=== PATIENT | female | born 1995 | race Caucasian/White ===

== ENCOUNTER 2020-02-11 11:24 | Emergency (ER) | payer OTHER, BC, SELFPAY ==
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
[2020-02-11 11:54] VITALS: BP 147/98; PULSE 63; RESP 12; TEMP 37.3; O2SAT 100
== END 2020-02-11 12:54 | disposition home or self-care (01) ==
PROVIDERS: Emergency Provider Nurse Practitioner Family; PCP Internal Medicine
DX: S43.101A Unspecified dislocation of right acromioclavicular joint, initial encounter (principal); V43.92XA Unspecified car occupant injured in collision with other type car in traffic accident, initial encounter; J45.909 Unspecified asthma, uncomplicated
CPT/HCPCS: 73030; 99213; G0463

== ENCOUNTER 2020-04-28 07:25 | Emergency (ER) | payer BC, SELFPAY ==
--- NOTE | ~2020-04-28 | US_ITS ---
EXAMINATION: US OB <=14 wk fetus w TV DATE: 04/28/2020 09:51 INDICATION: Vaginal bleeding and cramping during first trimester of TECHNIQUE: Real-time pelvic ultrasound utilizing both a transvaginal and transabdominal probe was pe rformed. The interpreting radiologist was not present for the study. COMPARISON: None. FINDINGS: The uterus measures 8.1 x 7.2 x 5.7 cm. There is an intrauterine gestational sac. A yolk sac is iden tified but no pole yet apparent. The mean sac diameter measures 10 mm which correlates with an estimated gestational age of 5 weeks and 4 days. 1.5 x 0.7 x 0.6 cm hypoechoic likely subchorionic he matoma along the caudal aspect of the gestational sac. The right ovary measures 2.5 x 1.8 x 1.7 cm. The left ovary measures 3.1 x 1.6 x 1.9 cm. 11 mm thick- walled centrally cystic likely corpus luteum cyst in the left ovary. Vascular flow identified in both ovaries on color Doppler. There is a small amount of free fluid in the pelvis. IMPRESSION: 1. Single intrauterine gestational sac with single yolk sac but no pole yet apparent likely due to early stage of . 2. Gestational age by ultrasound based upon mean sac diameter of 5 weeks 4 day(s) +/- or day(s) with ultrasound estimated date of delivery ([facility]) of 12/25/2020. 3. Small subchorionic hematoma. 4. Small amount of free fluid in the cul-de-sac. Reviewed, dictated and finalized at location A. IMPRESSION: 1. Single intrauterine gestational sac with single yolk sac but no pole y et apparent likely due to early stage of . 2. Gestational age by ultrasound based upon mean sac diameter of 5 weeks 4 day (s) +/- or day(s) with ultrasound estimated date of delivery ([facility]) of 1. 3. Small subchorionic hematoma. 4. Small amount of free fluid in the cul-de-sac.
[2020-04-28 07:28] VITALS: BP 133/69; PULSE 87; RESP 20; TEMP 36.7; O2SAT 100
[2020-04-28 08:00] LABS: Basophils Percent Auto 0.6 % (0.2-1.2); Eosinophils Absolute Auto 0.2 K/mm3 (0-0.3); Eosinophils Percent Auto 2.4 % (0-4.4); Hemoglobin 13.6 g/dL (12.0-15.0); Immature Granulocyte Absolute 0.02 K/mm3 (0.00-0.031); Immature Granulocyte Percent A 0.3 % (0-0.5); Lymphocytes Absolute Auto 1.66 K/mm3 (0.9-3.2); Lymphocytes Percent Auto 24.5 % (18.3-44.2); Mean Corpuscular HGB Conc 33.2 g/dl (32-36); Mean Corpuscular Hemoglobin 29.7 pg (26-34); Mean Corpuscular Volume 89.5 fl (80-100); Mean Platelet Volume 10.2 fl (7.4-10.4); Monocytes Absolute Auto 0.3 K/mm3 (0.1-0.6); Neutrophils Absolute Auto 4.6 K/mm3 (1.3-6.7); Neutrophils Percent Auto 68.2 % (45.5-73.1); Platelet Count Result 221 k/mm3 (150-375); Red Blood Count 4.58 M/mm3 (4.2-5.4); Red Cell Distribution Width 13.2 % (11.5-14.5); White Blood Count 6.8 K/mm3 (4.5-10.0)
[2020-04-28 08:11] LABS: Add Urine Microscopic? YES; Appearance Urine Cloudy (Clear); Bilirubin Urine Negative (Negative); Blood Urine 3+ (Negative); Color Urine Amber (Yellow); Glucose Urine UA Negative (Negative); Ketones Urine Negative (Negative); Leukocyte Esterase Ur Negative LEU/UL (Negative); Mucus Urine Few /lpf; Nitrate Urine Negative (Negative); Protein Urine 2+ mg/dL (Negative); RBC Urine 21-50 /hpf (0-2); Specific Grav Ur 1.023 (1.001-1.035); Squamous Epithelial Cell Urine Many /hpf (Few); WBC Urine 0-3 /hpf
--- NOTE | 2020-04-28 08:14 | ED.GENADULT ---
HPI - General Adult General Chief complaint: Vaginal Bleeding Stated complaint: 6 WEEKS PREG, BLEEDING Time Seen by Provider: 04/28/20 07:39 Source: patient History of Present Illness HPI narrative: Patient is 25 y/o female complaining of severe vaginal bleeding starting today. She did not notice any tissue or clots. There is no alleviating or exacerbating factor. She also has some lower abdominal cramp. She states that she is approximately 6 week . Her LMP was 03/20/20. She has seen Dr. Thomason once for her . Related Data Allergies Allergy/AdvReac Type Severity Reaction Status Date / Time No Known Allergies Allergy Mild Verified 04/28/20 07:30 Review of Systems Constitutional: Constitutional: Denies chills, Denies fever(s), Denies headache(s) and Denies weakness Eyes: Eyes: Denies blurry vision ENT: Denies headache(s) and Denies neck pain Cardiovascular: Cardiovascular: Denies chest pain and Denies dyspnea Respiratory: Respiratory: Denies cough and Denies dyspnea Gastrointestinal: Gastrointestinal: Denies abdominal pain, Denies diarrhea, Denies nausea and Denies vomiting Genitourinary: Genitourinary: Reports abnormal vaginal bleeding, Denies hematuria, Denies dysuria and Reports pelvic pain Musculoskeletal: Musculoskeletal: Denies back pain and Denies neck pain Neurologic: Denies headache(s) and Denies weakness PMFSH Past Medical History Medical History (Updated 04/28/20 @ 11:01 by Aria Garcia MD) Asthma Surgical History Surgical History H/O oral surgery Family History Family History Grandparent Family history of coronary artery disease Mother Thyroid disease Father No problems noted. Social History Social History Smoking status: Never smoker Alcohol intake: never Substance use: never Gender identity (if verbalized by the patient): Female Exam Const: General: no acute distress and well developed Orientation/consciousness: oriented to person, oriented to place, oriented to time and patient oriented x3 HENMT: Head: normocephalic Ears: external ears normal General nose exam: Normal external nose present Eyes: General: appearance normal, both eyes and all related structures Conjunctivae: conjunctivae normal Neck: Neck: normal visual inspection and full ROM Chest: Chest palpation & inspection: normal inspection of the chest and no tenderness Resp: Effort & Inspection: normal respiratory effort Auscultation: clear to auscultation bilaterally Cardio: Rate: regular rate Rhythm: regular rhythm GI: GI Palp: No abdominal tenderness and Yes Soft to palpation Skin: General skin exam: normal color and turgor normal Neuro: General: oriented to person, oriented to place, oriented to time and patient oriented x3 Cognition (Neuro): normal cognition Extrem: General: normal to inspection, full ROM and no pedal edema Psych: Appearance: grossly normal Mental Status: mental status grossly normal Affect: normal affect Course Consultations Consultation #1: Discussed with Dr. Marshall ([employer]), who agrees with the plan for discharge and follow up. Date: 04/28/20 Time: 10:42 Vital Signs Vital signs: Vital Signs Temperature 36.7 C 04/28/20 07:28 Pulse Rate 87 04/28/20 07:28 Respiratory Rate 20 04/28/20 07:28 Blood Pressure 133/69 04/28/20 07:28 Pulse Oximetry 100 04/28/20 07:28 Temperature 36.7 C 04/28/20 07:28 Pulse Rate 86 04/28/20 11:11 Respiratory Rate 20 04/28/20 07:28 Blood Pressure 111/63 04/28/20 11:11 Pulse Oximetry 98 04/28/20 11:11 Medical Decision Making Vital Signs Vital Signs: Vital Signs Temperature 36.7 C 04/28/20 07:28 Pulse Rate 87 04/28/20 07:28 Respiratory Rate 20 04/28/20 07:28 Blood Pressure 133/69 04/28/20 07:28 Pulse Oximetry
[2020-04-28 08:16] LABS: Alanine Aminotransferase 34 U/L (4-35); Albumin Level 4.4 g/dL (3.5-5.1); Alkaline Phosphatase 53 U/L (38-126); Anion Gap 8 mmol/L (8-16); Aspartate Amino Transferase 29 U/L (14-36); Bilirubin,Total 0.5 mg/dL (0.2-1.3); Blood Urea Nitrogen 10 mg/dL (7-17); Calcium 9.2 mg/dL (8.4-10.2); Carbon Dioxide 27 mmol/L (22-30); Chloride 103 mmol/L (98-107); Estimated CRCL calculation 135 ml/min; Estimated Glomerular Filt Rate > 60; Glucose 128 mg/dL (65-105); Potassium 3.7 mmol/L (3.4-5.0); Sodium 138 mmol/L (137-145)
[2020-04-28 11:11] VITALS: BP 111/63; PULSE 86; O2SAT 98
== END 2020-04-28 11:18 | disposition home or self-care (01) ==
PROVIDERS: Emergency Provider Emergency Medicine; PCP Internal Medicine
DX: O20.0 Threatened abortion (principal); Z3A.01 Less than 8 weeks gestation of pregnancy
CPT/HCPCS: 36415; 76801; 76817; 80053; 81001; 84702; 85025; 86900; 86901; 99284

== ENCOUNTER 2020-05-02 15:05 | Emergency (ER) | payer BC, SELFPAY ==
[2020-05-02 15:10] VITALS: BP 140/81; PULSE 90; RESP 16; TEMP 36; O2SAT 100
--- NOTE | 2020-05-02 16:05 | ED.PREGNANCY ---
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 Patient is about 6 weeks , had an ultrasound done a few days ago here in the emergency department. She also notes abdominal cramping that started today. Patient denies any recent sexual activity. No urinary complaints. Patient went to her [employer]'s office on Wednesday, and only had blood drawn. No chest pain or shortness of breath. Related Data Allergies Allergy/AdvReac Type Severity Reaction Status Date / Time No Known Allergies Allergy Mild Verified 04/28/20 07:30 Review of Systems Review of Systems: Narrative: CONSTITUTIONAL: Denies fever, chills, or sweats. EYES: Denies visual changes, redness, or discharge. ENT: Denies rhinorrhea, congestion, sore throat, or otalgia. CARDIOVASCULAR: Denies chest pain, palpitations, or edema. RESPIRATORY: Denies cough or dyspnea. GASTROINTESTINAL: Denies abdominal pain, nausea, vomiting, or diarrhea. GENITOURINARY: Vaginal bleeding. SKIN: Denies rash or itching. MUSCULOSKELETAL: Denies back pain, joint pain, or myalgia. NEUROLOGIC: Denies headache, numbness, dizziness, or weakness. PSYCHIATRIC: Denies anxiety or depression. All systems reviewed & are unremarkable except as noted in HPI and below (ROS) PMFSH Past Medical History Medical History (Updated 05/02/20 @ 19:09 by Damaso Manzano DO) Asthma Surgical History Surgical History H/O oral surgery Family History Family History Grandparent Family history of coronary artery disease Mother Thyroid disease Father No problems noted. Social History Social History Smoking status: Never smoker Alcohol intake: never Substance use: never Gender identity (if verbalized by the patient): Female Exam Narrative: Exam Narrative: GENERAL: Well-appearing, well-nourished, and in no acute distress. HEAD: Normocephalic, atraumatic. EYES: PERRLA and EOMI. ENT: Nares clear, no rhinorrhea or epistaxis. Mucous membranes moist. NECK: Supple. CHEST: Clear to auscultation. No respiratory distress. HEART: Regular rate and rhythm. No murmur heard. Normal peripheral pulses. : Small amount of blood clots in vaginal vault, no active bleeding. ABDOMEN: Soft, nontender, nondistended, normal active bowel sounds. EXTREMITIES: Normal range of motion. No edema. SKIN: Warm, dry, no rash. NEURO: No focal deficits. Alert and oriented x3. PSYCH: Normal mood and affect. Course Course Emergency Course: 19:00 -is increase in the requirement. However since bleeding started today, this could possibly be the early start of a miscarriage. Counseled patient to follow-up with her [employer] physician as soon as possible. Patient will need a repeat beta quant in the future, and repeat examination. She may need ultrasound the next few days also. Return to emergency department at any time if she notes increased vaginal bleeding, abdominal cramping/pain, or other concerns. Vital Signs Vital signs: Vital Signs Temperature 36.0 C L 05/02/20 15:10 Pulse Rate 90 05/02/20 15:10 Respiratory Rate 16 05/02/20 15:10 Blood Pressure 140/81 05/02/20 15:10 Pulse Oximetry 100 05/02/20 15:10 Temperature 36.0 C L 05/02/20 15:10 Pulse Rate 82 05/02/20 18:26 Respiratory Rate 18 05/02/20 18:26 Blood Pressure 112/78 05/02/20 18:26 Pulse Oximetry 99 05/02/20 18:26 MDM - OB/Uterine Contractions Medical Records Attestation: I reviewed the patient's medical records. Lab Data Attestation: I reviewed the patient's lab results. Result diagrams: 05/02/20 16:31 05/02/20 16:31
[2020-05-02 16:43] LABS: Basophils Absolute Auto 0.1 K/mm3 (0.0-0.1); Basophils Percent Auto 0.7 % (0.2-1.2); Eosinophils Absolute Auto 0.2 K/mm3 (0-0.3); Eosinophils Percent Auto 1.9 % (0-4.4); Hematocrit 39.5 % (37.0-47.0); Hemoglobin 13.2 g/dL (12.0-15.0); Immature Granulocyte Absolute 0.02 K/mm3 (0.00-0.031); Immature Granulocyte Percent A 0.2 % (0-0.5); Lymphocytes Absolute Auto 2.07 K/mm3 (0.9-3.2); Lymphocytes Percent Auto 22.6 % (18.3-44.2); Mean Corpuscular HGB Conc 33.4 g/dl (32-36); Mean Corpuscular Hemoglobin 29.2 pg (26-34); Mean Corpuscular Volume 87.4 fl (80-100); Mean Platelet Volume 10.1 fl (7.4-10.4); Monocytes Absolute Auto 0.4 K/mm3 (0.1-0.6); Monocytes Percent Auto 4.7 % (2.6-8.5); Neutrophils Absolute Auto 6.4 K/mm3 (1.3-6.7); Neutrophils Percent Auto 69.9 % (45.5-73.1); Platelet Count Result 222 k/mm3 (150-375); Red Blood Count 4.52 M/mm3 (4.2-5.4); Red Cell Distribution Width 12.7 % (11.5-14.5); White Blood Count 9.2 K/mm3 (4.5-10.0)
[2020-05-02 16:59] LABS: Alanine Aminotransferase 30 U/L (4-35); Albumin Level 4.3 g/dL (3.5-5.1); Alkaline Phosphatase 53 U/L (38-126); Anion Gap 8 mmol/L (8-16); Aspartate Amino Transferase 28 U/L (14-36); Bilirubin,Total 0.3 mg/dL (0.2-1.3); Blood Urea Nitrogen 9 mg/dL (7-17); Calcium 9.1 mg/dL (8.4-10.2); Carbon Dioxide 26 mmol/L (22-30); Chloride 103 mmol/L (98-107); Estimated CRCL calculation 135 ml/min; Estimated Glomerular Filt Rate > 60; Glucose 108 mg/dL (65-105); Potassium 3.4 mmol/L (3.4-5.0); Sodium 137 mmol/L (137-145)
[2020-05-02 17:50] LABS: Add Urine Microscopic? YES; Appearance Urine Clear (Clear); Bacteria Urine Trace /hpf; Bilirubin Urine Negative (Negative); Blood Urine 3+ (Negative); Color Urine Yellow (Yellow); Glucose Urine UA Negative (Negative); Ketones Urine Negative (Negative); Leukocyte Esterase Ur Negative LEU/UL (Negative); Mucus Urine Rare /lpf; Nitrate Urine Negative (Negative); Protein Urine Negative (Negative); RBC Urine 0-2 /hpf (0-2); Specific Grav Ur 1.013 (1.001-1.035); Squamous Epithelial Cell Urine Few /hpf (Few); Urobilinogen Urine Negative mg/dL (<2.0); WBC Urine 0-3 /hpf
[2020-05-02 18:26] VITALS: BP 112/78; PULSE 82; RESP 18; O2SAT 99
== END 2020-05-02 19:31 | disposition home or self-care (01) ==
PROVIDERS: Emergency Provider Emergency Medicine; PCP Internal Medicine
DX: O20.0 Threatened abortion (principal); Z3A.01 Less than 8 weeks gestation of pregnancy
CPT/HCPCS: 36415; 80053; 81001; 84702; 85025; 99284

== ENCOUNTER 2020-12-10 05:47 | Inpatient (IN) | payer BC, SELFPAY ==
[2020-12-10] VITALS (88 sets, daily range): BP systolic 102–156; BP diastolic 50–93; PULSE 67–115; RESP 18–20; TEMP 36.4–36.8; O2SAT 78–100; BMI 37.3
--- NOTE | 2020-12-10 06:36 | LDADM ---
This patient, Jeannette Wyatt, was admitted to Labor/Delivery/Recovery 107 on 12/10/20 at 05:47. Plans for labor, pain management and were discussed with patient. Patient/family oriented to hospital policies and general routines including ID bracelet, bed and alarms, visiting hours, pain management, procedures, bathroom and other care routines, personal items, smoking policy, room service/diet and guest tray routines, infant security routines, call light and visiting hours. Patient/Family are encouraged to report perceived risks to care and to ask questions if they do not understand what they are told or what they should do. See OBIX for further documentation.
[2020-12-10 06:44] LABS: Basophils Percent Auto 0.4 % (0.2-1.2); Eosinophils Absolute Auto 0.1 K/mm3 (0-0.3); Eosinophils Percent Auto 1.2 % (0-4.4); Hematocrit 34.9 % (37.0-47.0); Hemoglobin 11.2 g/dL (12.0-15.0); Immature Granulocyte Percent A 0.9 % (0-0.5); Lymphocytes Percent Auto 16.9 % (18.3-44.2); Mean Corpuscular HGB Conc 32.1 g/dl (32-36); Mean Corpuscular Hemoglobin 27.3 pg (26-34); Mean Corpuscular Volume 84.9 fl (80-100); Mean Platelet Volume 12.3 fl (7.4-10.4); Monocytes Absolute Auto 0.6 K/mm3 (0.1-0.6); Monocytes Percent Auto 5.6 % (2.6-8.5); Platelet Count Result 134 k/mm3 (150-375); Red Blood Count 4.11 M/mm3 (4.2-5.4); Red Cell Distribution Width 14.6 % (11.5-14.5); White Blood Count 10.6 K/mm3 (4.5-10.0)
[2020-12-10 06:59] LABS: Alanine Aminotransferase 12 U/L (4-35); Albumin Level 3.2 g/dL (3.5-5.1); Alkaline Phosphatase 123 U/L (38-126); Anion Gap 5 mmol/L (8-16); Aspartate Amino Transferase 21 U/L (14-36); Bilirubin,Total 0.3 mg/dL (0.2-1.3); Blood Urea Nitrogen 10 mg/dL (7-17); Calcium 8.8 mg/dL (8.4-10.2); Carbon Dioxide 24 mmol/L (22-30); Chloride 107 mmol/L (98-107); Estimated CRCL calculation 151 ml/min; Estimated Glomerular Filt Rate > 60; Glucose 100 mg/dL (65-110); Potassium 3.9 mmol/L (3.4-5.0); Sodium 136 mmol/L (137-145)
[2020-12-10] MEDS: LACTATED RINGERS 1,000 ML 125 ML IV CONT ×2 (07:23→09:19)
[2020-12-10] MEDS: OXYTOCIN 30 UNITS/NS 500 ML 30 UNITS/500 ML BAG IV CONT (07:23)
--- NOTE | 2020-12-10 07:44 | PM.IMHP ---
H&P: HPI History of Present Illness Date/Time: 12/10/20 07:44 5-year-old 3 para 2 whose last menstrual period was 03/20/2020, EDC is 12/25/2020, presents at 37 and 6 7th weeks gestation for induction of labor. She has elevated blood pressures. She also complains of some headaches. PIH labs this morning are within normal limits. Early ultrasound confirmed states. She is negative for group B strep Chief Complaint: Elevated blood pressures at term Review of Systems Review of Systems: All systems reviewed & are unremarkable except as noted in HPI and below PMFSH Past Medical History Medical History Asthma Surgical History Surgical History H/O oral surgery Family History Family History Grandparent Family history of coronary artery disease Mother Thyroid disease Father No problems noted. Social History Social History Smoking status: Never smoker Alcohol intake: never Substance use: never Gender identity (if verbalized by the patient): Female Spiritual care concerns: No Meds Home Medications and Allergies Home Medications Medication Instructions Recorded Confirmed Type albuterol sulfate 90 mcg/actuation 1 puff INHALATION Q4-6H PRN #8.5 gm 09/22/19 12/10/20 Rx aerosol inhaler [id number] fum-folic [id number] 1 pkg PO DAILY 11/22/20 12/10/20 History [One A Day Women's DHA] sertraline [Zoloft] 50 mg PO BID 11/22/20 12/10/20 History Allergies Allergy/AdvReac Type Severity Reaction Status Date / Time No Known Allergies Allergy Mild Verified 12/10/20 06:11 Vital Signs Vital Signs - 24 hr 12/10/20 06:26 12/10/20 06:31 12/10/20 06:46 Pulse Rate 90 88 82 Blood Pressure 138/91 H 132/89 136/80 12/10/20 07:16 12/10/20 07:31 Pulse Rate 98 94 Blood Pressure 145/93 H 138/88 Exam Const: General: no acute distress Eyes: General: appearance normal, both eyes and all related structures Neck: Neck: supple and no JVD Thyroid: thyroid normal Resp: Effort & Inspection: normal respiratory effort Auscultation: clear to auscultation bilaterally Cardio: Rate: regular rate Rhythm: regular rhythm GI: Inspection: non-distended GI Palp: Yes Soft to palpation, No Tenderness to palpation present (GI) and No Guarding due to palpation present (GI) Auscultation: normal bowel sounds : External Female Exam: normal external appearance Speculum Exam - Vagina: normal appearance of the vagina Speculum Exam - Cervix: Cervical os closed ( cervix 3/ 50/-1. AROM clear. FHTs reassuring) Skin: General skin exam: no rashes or lesions noted Extrem: General: normal to inspection and no edema Psych: Mental Status: mental status grossly normal Affect: normal affect H&P: Results Labs Labs: Short CBC 12/10/20 Range/Units 06:25 WBC 10.6 H (4.5-10.0) K/mm3 Hgb 11.2 L (12.0-15.0) g/dL Hct 34.9 L (37.0-47.0) % Plt Count 134 L (150-375) k/mm3 BMP 12/10/20 06:25 Sodium 136 L Potassium 3.9 Chloride 107 Carbon Dioxide 24 BUN 10 Creatinine 0.60 L Glucose 100 Calcium 8.8 Liver Function 12/10/20 Range/Units 06:25 Total Bilirubin 0.3 (0.2-1.3) mg/dL AST 21 (14-36) U/L ALT 12 (4-35) U/L Alkaline Phosphatase 123 (38-126) U/L Albumin 3.2 L (3.5-5.1) g/dL Assessment and Plan Additional Plan impression: Term with elevated blood pressures Plan: Medical induction of labor. Spontaneous vaginal delivery is expected. She has an epidural candidate.
--- NOTE | 2020-12-10 08:52 | WPDANESEPPF ---
Anes - Initial Pre Proc Eval Date/Time: 12/10/20 08:52 Surgeon: Parth Thomason MD Pre Op Diagnosis: IOL Patient Data Age: 25 Gender: F Height: 1.7 m Weight: 108 kg Last Vital Signs Temp 36.8 C 12/10/20 07:44 Pulse 82 12/10/20 08:31 BP 139/88 12/10/20 08:31 Pulse Ox 100 12/10/20 08:51 Allergies Allergy/AdvReac Type Severity Reaction Status Date / Time No Known Allergies Allergy Mild Verified 12/10/20 06:11 Home Medications Medication Instructions Recorded Confirmed Type albuterol sulfate 90 mcg/actuation 1 puff INHALATION Q4-6H PRN #8.5 gm 09/22/19 12/10/20 Rx aerosol inhaler [id number] fum-folic [id number] 1 pkg PO DAILY 11/22/20 12/10/20 History [One A Day Women's DHA] sertraline [Zoloft] 50 mg PO BID 11/22/20 12/10/20 History Laboratory Tests 12/10/20 12/10/20 12/10/20 06:25 06:25 06:25 WBC 10.6 K/mm3 H K/mm3 (4.5-10.0) RBC 4.11 M/mm3 L M/mm3 (4.2-5.4) Hgb 11.2 g/dL L g/dL (12.0-15.0) Hct 34.9 % L % (37.0-47.0) MCV 84.9 fl fl (80-100) MCH 27.3 pg pg (26-34) MCHC 32.1 g/dl g/dl (32-36) RDW 14.6 % H % (11.5-14.5) Plt Count 134 k/mm3 L k/mm3 (150-375) MPV 12.3 fl H fl (7.4-10.4) Immature Gran % (Auto) 0.9 % H % (0-0.5) Neut % (Auto) 75.0 % H % (45.5-73.1) Lymph % (Auto) 16.9 % L % (18.3-44.2) Lipscomb % (Auto) 5.6 % % (2.6-8.5) Eos % (Auto) 1.2 % % (0-4.4) Baso % (Auto) 0.4 % % (0.2-1.2) Lymph # (Auto) 1.80 K/mm3 K/mm3 (0.9-3.2) Lipscomb # (Auto) 0.6 K/mm3 K/mm3 (0.1-0.6) Eos # (Auto) 0.1 K/mm3 K/mm3 (0-0.3) Baso # (Auto) 0.0 K/mm3 K/mm3 (0.0-0.1) Abs Immat Gran (auto) 0.10 K/mm3 H K/mm3 (0.00-0.031) Absolute Neuts (auto) 8.0 K/mm3 H K/mm3 (1.3-6.7) Absolute Nucleated RBC 0.0 K/mm3 K/mm3 (0.0-0.012) Nucleated RBC % 0.0 % % (0.0-0.2) Sodium 136 mmol/L L mmol/L (137-145) Potassium 3.9 mmol/L mmol/L (3.4-5.0) Chloride 107 mmol/L mmol/L (98-107) Carbon Dioxide 24 mmol/L mmol/L (22-30) Anion Gap 5 mmol/L L mmol/L (8-16) BUN 10 mg/dL mg/dL (7-17) Creatinine 0.60 mg/dL L mg/dL (0.7-1.0) Estim Creat Clear Calc 151 ml/min ml/min Estimated GFR > 60 (59 - ) Glucose 100 mg/dL mg/dL (65-110) Calcium 8.8 mg/dL mg/dL (8.4-10.2) Total Bilirubin 0.3 mg/dL mg/dL (0.2-1.3) AST 21 U/L U/L (14-36) ALT 12 U/L U/L (4-35) Alkaline Phosphatase 123 U/L U/L (38-126) Total Protein 6.0 g/dL L g/dL (6.3-8.2) Albumin 3.2 g/dL L g/dL (3.5-5.1) RPR Pending Blood Type Antibody Screen 12/10/20 06:25 WBC RBC Hgb Hct MCV MCH MCHC RDW Plt Count MPV Immature Gran % (Auto) Neut % (Auto) Lymph % (Auto) Lipscomb % (Auto) Eos % (Auto) Baso % (Auto) Lymph # (Auto) Lipscomb # (Auto) Eos # (Auto) Baso # (Auto) Abs Immat Gran (auto) Absolute Neuts (auto) Absolute Nucleated RBC Nucleated RBC % Sodium Potassium Chloride Carbon Dioxide Anion Gap BUN Creatinine Estim Creat Clear Calc Estimated GFR Glucose Calcium Total Bilirubin AST ALT Alkaline Phosphatase Total Protein Albumin RPR Blood Type O Positive Antibody Screen Negative Patient hx anesthesia problems: none Family hx anesthesia problems: none Results Review: All pre-operative results and documents have been reviewed as part of the pre-operative evaluation. PMF
--- NOTE | 2020-12-10 11:43 | PM.OBPNLAB ---
Pain Control Date/time seen: 12/10/20 11:43 Pain control: tolerating well and epidural Pelvic Exam Dilation (cm): 4 Effacement (%): 80 Amniotic membrane status: Leaking Contractions Monitor mode: Palpation
--- NOTE | 2020-12-10 12:27 | PM.OBPRVD ---
OB - Delivery Note Procedure Delivery date: 12/10/20 Procedure: mil events: Induced HTN Intrapartal events: None Induction method: AROM Delivery augmentation: pitocin Delivery monitor: external FHT Route of delivery: Episiotomy description: None Laceration Description: None Quantitative Blood Loss (ml): 58 Anesthesia type: Epidural Disposition: floor Baby Date of : 12/10/20 Time of : 12:17 Weeks of gestation at delivery: 37 gender: Female Weight (pounds): 8 Weight (ounces): 3 presentation: vertex position: Right Occiput Anterior Placenta delivery description: Spontaneous cord vessel description: 3 Vessels and Nuchal Cord score one minute: 9 score five minutes: 9
[2020-12-10] MEDS: OXYTOCIN 30 UNITS/NS 500 ML 30 UNITS/500 ML BAG 125 UNITS IV CONT (13:03)
--- NOTE | 2020-12-10 15:15 | PC.NURSE ---
Patient transferred to post room #285 per wheelchair. Support person present. Oriented to unit, room, information board, rooming in, admission packet and security measures. Patient verbalizes understanding.
--- NOTE | 2020-12-10 15:45 | PC.NURSE ---
RN requested assist with feeding. Mother reports eagerly fed first feeding without issue. Infant is able to freely thrust tongue past gum ridge and flange both lips. Skin is intact on both nipples, no redness and bruising noted. Reviewed infant feeding cues, frequencies, duration of feedings, feeding elimination flow sheet, and signs of adequate intake. Demonstrated stimulation techniques to wake for feeding. Assisted with to breast. Reviewed positioning/alignment in cross cradle, holding breast in ?U? hold and guided asymmetrical latch on. Reviewed rational for each. Infant able to latch correctly within a few attempts. nursed eagerly with steady draws and occasional/frequent swallowing noted, some pausing noted. Reviewed signs of a correct latch, effective nursing and suck swallow ratio. Suggested mother stimulate while feeding to increase stimulation for milk supply, for increased intake and to assist with maintaining deep latch. was able to maintain latch without discomfort to mother. Nipple care reviewed of lanolin after feedings, warm compresses as needed. Instructed mother to call out for RN assistance if she is unable to latch for feeding or she has discomfort with nursing. Instructed feeding should be initiated three hours from start of last feeding or if feeding cues are noted before. Mother voiced understanding of information shared.
[2020-12-10] MEDS: DOCUSATE SODIUM 100 MG CAPSULE PO (17:26)
[2020-12-10] MEDS: IBUPROFEN 600 MG TABLET PO (17:27)
[2020-12-10] MEDS: LANOLIN (LANSINOH) 7.5 GM CREAM 1 APPLIC TOPICAL (17:27)
[2020-12-10] MEDS: SERTRALINE HCL 50 MG TABLET PO (19:46)
[2020-12-11] MEDS: IBUPROFEN 600 MG TABLET PO ×2 (01:17→09:29)
[2020-12-11 04:30] VITALS: BP 124/73; PULSE 82; RESP 18; TEMP 36.6; O2SAT 97
[2020-12-11 04:58] LABS: Hematocrit 31.1 % (37.0-47.0); Hemoglobin 10.1 g/dL (12.0-15.0)
--- NOTE | 2020-12-11 07:43 | PM.DS ---
DS: Admitting Diagnosis Discharge Date 11/10/2020 Admitting Diagnosis gestational hypertension at term DS: Summary Hospital Course Hospital Course: the patient was admitted for induction of labor at 37 and 5 7th weeks gestation. She had elevated blood pressures at term. She underwent spontaneous vaginal delivery which was unremarkable. Her hospital course was unremarkable as well. She was up, ambulating, voiding without difficulty, and generally without complaints Time Spent with Patient Time attestation: Total time spent providing and/or coordinating discharge services: Exam Const: General: no acute distress Eyes: General: appearance normal, both eyes and all related structures Neck: Neck: supple and no JVD Thyroid: thyroid normal Resp: Effort & Inspection: normal respiratory effort Auscultation: clear to auscultation bilaterally Cardio: Rate: regular rate Rhythm: regular rhythm GI: Inspection: non-distended GI Palp: Yes Soft to palpation, No Tenderness to palpation present (GI) and No Guarding due to palpation present (GI) Auscultation: normal bowel sounds : General: Yes bladder normal to palpation External Female Exam: normal external appearance Speculum Exam - Vagina: normal vaginal discharge and No vaginal bleeding Speculum Exam - Cervix: nontender Bimanual exam- vagina & uterus: bladder normal to palpation and No Cervical tenderness present OB/external & speculum: No vaginal bleeding Skin: General skin exam: no rashes or lesions noted Extrem: General: normal to inspection and no edema Psych: Mental Status: mental status grossly normal Affect: normal affect DS: Data Data Completed and Pending Labs on day of discharge: Labs from last 24 hours 12/11/20 12/10/20 04:43 06:25 Hgb 10.1 L Hct 31.1 L Blood Type O Positive Antibody Screen Negative Discharge Plan Discharge Attending physician on discharge: Parth Thomason Discharging Clinician: Parth Thomason Patient Disposition: Home, Self-Care Activity: may shower, no straining and pelvic rest Diet: heart healthy Patient Instructions: Antibiotic Form Stand Alone Forms: General Discharge Information Follow-up/Referrals: Parth Thomason MD [Physician] - Discharge Medications: Continued albuterol sulfate [Ventolin HFA] 90 mcg/actuation HFA aerosol inhaler 1 puff INHALATION Q4-6H PRN (Reason: shortness of breath or wheezing) Qty: 8.5 RF: 3 sertraline [Zoloft] 50 mg Tablet 50 mg PO BID RF: 0 One A Day Women's DHA 28 mg iron- 800 mcg Combo Pack 1 pkg PO DAILY RF: 0 Date of admission: 12/10/20 05:47 Primary Care Provider: Abe Cline Admitting Provider: Parth Thomason Attending physician on admission: Parth Thomason Condition: Stable
--- NOTE | 2020-12-11 07:45 | PM.OBPNVD ---
OB - PN: Subj Subjective Date/time seen: 12/11/20 07:45 Patient comments: no complaints and pain well controlled baby status: doing well OB - PN: Obj Data Labs CBC & Chem 7: 12/11/20 04:43 12/10/20 06:25 Labs: Laboratory Results - last 24 hr 12/10/20 12/11/20 06:25 04:43 Hgb 10.1 L Hct 31.1 L Blood Type O Positive Antibody Screen Negative OB - PN A/P Plan day: 1 Plan: routine care, discharge home and follow up 6 weeks Time Spent With Patient Time: Total time spent is greater than 50% in coordination of care (as documented) at patient's floor/unit and/or counseling patient: Time with patient: less than 15 minutes Review of Systems Review of Systems: All systems reviewed & are unremarkable except as noted in HPI and below Exam Const: General: no acute distress Eyes: General: appearance normal, both eyes and all related structures Neck: Neck: supple and no JVD Thyroid: thyroid normal Resp: Effort & Inspection: normal respiratory effort Auscultation: clear to auscultation bilaterally Cardio: Rate: regular rate Rhythm: regular rhythm GI: Inspection: non-distended GI Palp: Yes Soft to palpation, No Tenderness to palpation present (GI) and No Guarding due to palpation present (GI) Auscultation: normal bowel sounds : General: Yes bladder normal to palpation External Female Exam: normal external appearance Speculum Exam - Vagina: normal vaginal discharge and No vaginal bleeding Speculum Exam - Cervix: nontender Bimanual exam- vagina & uterus: bladder normal to palpation and No Cervical tenderness present OB/external & speculum: No vaginal bleeding Skin: General skin exam: no rashes or lesions noted Extrem: General: normal to inspection and no edema Psych: Mental Status: mental status grossly normal Affect: normal affect
[2020-12-11 08:00] VITALS: BP 136/80; PULSE 84; RESP 16; TEMP 36.8; O2SAT 99
--- NOTE | 2020-12-11 09:00 | WPDANLDPN2 ---
Anes-Prog Note L&D Date/Time: 12/11/20 09:00 Comfortable throughout: labor and delivery Neuraxial method: epidural Epidural/Spinal procedure site: tender (pt verbalizes pain to back. instructed on NSAID use & warm compress as needed) Neuro status: Neuro function grossly intact. Cardiovascular status: normal Respiratory status: normal Airway patency: baseline Mental status: baseline Post-Op hydration status: normal Vital Signs: Last Vital Signs Temp 98.2 F 12/11/20 08:00 Pulse 84 12/11/20 08:00 Resp 16 12/11/20 08:00 BP 136/80 12/11/20 08:00 Pulse Ox 99 12/11/20 08:00 Pain score (VAS): 3 Post-procedural complaints: none and other Patient feedback: Patient satisfied with anesthetic care.
[2020-12-11] MEDS: DOCUSATE SODIUM 100 MG CAPSULE PO (09:29)
[2020-12-11] MEDS: MULTIVIT/MIN/PREN/FOL AC/IRON TABLET 1 TAB PO (09:29)
[2020-12-11] MEDS: SERTRALINE HCL 50 MG TABLET PO (09:29)
[2020-12-11 09:33] LABS: Rapid Plasma Reagin Non-Reactive (NonReactive)
--- NOTE | 2020-12-11 11:15 | PC.NURSE ---
Mother called out for assist with feeding, reporting tenderness with feedings. Mother attempted to pump during the night due to nipple discomfort. Infant is able to freely thrust tongue past gum ridge and flange both lips. Skin is intact on both nipples, redness noted to both with and bruising on left nipple. Reviewed feeding cues, frequencies, duration of feedings, feeding elimination flow sheet, and signs of adequate intake. Demonstrated stimulation techniques to wake for feeding. Assisted with to breast. Reviewed positioning/alignment in cross cradle, holding breast in ?U? hold and guided asymmetrical latch on. Reviewed rational for each. several attempts before infant able to latch correctly. nursed sleepily with short chewy draws for several minutes, with stimulation infant began eagerly nursing with steady draws and occasional swallowing noted, some pausing noted. Reviewed signs of a correct latch, effective nursing and suck swallow ratio. Suggested mother stimulate while feeding to increase stimulation for milk supply, for increased intake and to assist with maintaining deep latch. Infant would slip to shallow latch with long pausing causing tenderness. Demonstrated how to adjust latch more deeply while feeding if needed. Mother reports she can feel the difference in latch with less tenderness. Nipple care reviewed of lanolin after feedings, warm compresses as needed, gel pads provided and reviewed care and cleaning. Instructed mother to call out for RN assistance if she is unable to latch infant for feeding or she has discomfort with nursing. Instructed feeding should be initiated three hours from start of last feeding or if feeding cues are noted before. Mother voiced understanding of information shared. Mother reports she plans on discharge later this day. Mother is feeding as required and waking to feed if needed. Infant is currently meeting outcomes for weight, output, jaundice and feeding frequencies. Mother states she feels confident to continue effective at home. Reviewed transition to breast milk, signs of adequate intake, and engorgement/relief. Instructed to call ICP if intake/output less than required. Reviewed regular medications mother is taking. Information provided per Sm[facility]. Reviewed community resources on the [facility] website and in the Mom/Baby guide. Information on outpatient services provided. Mother has no further questions at this time.
[2020-12-11 11:26] VITALS: BP 133/79; PULSE 80; RESP 16; TEMP 36.9; O2SAT 99
[2020-12-12 10:45] VITALS: BP 142/69; PULSE 82; RESP 20; TEMP 37; O2SAT 100
== END 2020-12-11 15:20 | disposition home or self-care (01) | DRG 807 ==
LOC: ANHLDR 05:52 → ANHOB2 15:29
PROVIDERS: Admitting Provider Obstetrics & Gynecology; PCP Internal Medicine; Visit Provider Obstetrics & Gynecology
DX: O13.4 Gestational [pregnancy-induced] hypertension without significant proteinuria, complicating childbirth (principal); Z37.0 Single live birth; Z3A.37 37 weeks gestation of pregnancy; O69.81X0 Labor and delivery complicated by cord around neck, without compression, not applicable or unspecified
CPT/HCPCS: 36415; 80053; 85014; 85018; 85025; 86592; 86850; 86900; 86901; A9270; J2590; J2795; J7120

== ENCOUNTER → 2022-01-13 11:08 | Outpatient (CLI) | payer BC, SELFPAY ==
--- NOTE | ~2022-01-13 | US_ITS ---
EXAMINATION: US OB <=14 wk fetus w TV INDICATION: DATING, positive test, history of IUD in place. TECHNIQUE: Sonography of the pelvis was performed by transabdominal and transvaginal techniques. COMPARISON: 04/28/2020. RESULT: Uterus: Orientation: Anteverted. 7.4 x 6.4 x 6.3 cm. Myometrium: homogeneous echogenicity. Somewhat linear echogenicities in the lower uterine segment/cervical canal. Another more focal area of echogen icity with posterior shadowing, likely parenchymal, at the junction of the uterus and cervix. Gestation: - Intrauterine gestational sac: Single present. - Mean Sac Diameter: cm, corresponding gestational age week days. - Yolk sac: Visualized, not directly measured. - Embryo: Single present. - [place] rump length: 0.92 cm, corresponding gestational age 7 weeks, 0 days. -Gestational heart rate: present 135 bpm. -Subgestational hematoma: Absent . Right ovary: 2.3 x 1.4 x 2.1 cm. Normal sonographic appearance with physiologic follicles. . . Left ovary: Not visualized. No adnexal mass detected. Pelvis free fluid: None. IMPRESSION: Single, live intrauterine gestation. Estimated Gestational Age: 7 weeks, 0 days by crown rump length. FLORA by ultrasound 09/01/2022. Echogenicities in the lower uterine segment/cervix and cervical canal, an atypical appearance for an IUD, however the provided images make this difficult to state conclusively. Correlate clinically. Reviewed, dictated and finalized at location K. HAND IMPRESSION: Single, live intrauterine gestation. Estimated Gestational Age: 7 weeks, 0 days by crown rump length. FLORA by ultras ound 09/01/2022. Echogenicities in the lower uterine segment/cervix and cervical canal, an atypi elissa appearance for an IUD, however the provided images make this difficult to s garcia conclusively. Correlate clinically.
== END ==
PROVIDERS: PCP Obstetrics & Gynecology; Visit Provider Obstetrics & Gynecology
DX: Z36.89 Encounter for other specified antenatal screening (principal); Z3A.01 Less than 8 weeks gestation of pregnancy
CPT/HCPCS: 76801; 76817

== ENCOUNTER 2022-08-18 05:00 | Inpatient (IN) | payer BC, SELFPAY ==
[2022-08-18] VITALS (84 sets, daily range): BP systolic 82–147; BP diastolic 47–96; PULSE 80–128; RESP 16–18; TEMP 36.3–36.9; O2SAT 96–100; BMI 36.9
--- NOTE | 2022-08-18 05:24 | LDADM ---
This patient, Jeanntete Wyatt, was admitted to Labor/Delivery/Recovery 104 on 08/18/22 at 05:00. Plans for labor, pain management and were discussed with patient. Patient/family oriented to hospital policies and general routines including ID bracelet, bed and alarms, visiting hours, pain management, procedures, bathroom and other care routines, personal items, smoking policy, room service/diet and guest tray routines, infant security routines, and visiting hours. Patient/Family are encouraged to report perceived risks to care and to ask questions if they do not understand what they are told or what they should do. See [facility]BI[facility] for further documentation.
--- NOTE | 2022-08-18 05:42 | P.HP_ITS ---
H&P: HPI History of Present Illness Date/Time: 08/18/22 05:42 Chief Complaint: elevated blood pressure at term Narrative: [age]-year-old 4 para 3 whose last menstrual period is unknown, EDC is 09/01/2022, confirmed by a first-trimester ultrasound who is admitted for induction of labor secondary to elevated blood pressures. She is positive for B strep. And prior to the admission her blood pressures were okay until recently. [facility] Past Medical History Medical History (Updated 08/18/22 @ 05:45 by Parth Roque MD) Asthma Surgical History Surgical History H/O oral surgery Family History Family History Grandparent Family history of coronary artery disease Mother Thyroid disease Father No problems noted. Social History Social History Smoking status: Never smoker Alcohol intake: current Substance use: former Lack of Transportation: No Lack of Food: Never True Current Housing: I Have Housing Concerned About Future Housing: No Difficulty Paying Gas/Electric Bills: No Difficulty Paying for Meds: No Currently Unemployed: No Education: Associate Degree Difficulty w/ Childcare or Family Care: No Gender identity (if verbalized by the patient): Female Spiritual care concerns: No Meds Home Medications and Allergies Home Medications Medication Instructions Recorded Confirmed Type albuterol sulfate 90 mcg/actuation 1 puff inhalation Q4-6H PRN 09/22/19 08/18/22 Rx aerosol inhaler (Ventolin HFA) shortness of breath or wheezing #8.5 grams Allergies Allergy/AdvReac Type Severity Reaction Status Date / Time No Known Allergies Allergy Mild Verified 08/18/22 05:21 Vital Signs Vital Signs - 24 hr 08/18/22 05:23 Oxygen Delivery Room Air Exam Const: General: cooperative, healthy appearing and comfortable Nutritional Appearance: average body habitus Orientation/consciousness: oriented to person, oriented to place and oriented to time Resp: Effort & Inspection: normal respiratory effort Cardio: Rate: regular rate Rhythm: regular rhythm Heart sounds: S1 normal heart sound present and S2 normal heart sound present GI: Inspection: normal to inspection ( Gravid soft uterus. FHTs reassuring) Assessment and Plan Assessment and plan (1) Term : Code(s): Z34.90 - Encounter for supervision of normal , unspecified, unspecified trimester Status: Acute (2) Positive testing for group B Streptococcus: Code(s): B95.1 - Streptococcus, group B, as the cause of diseases classified elsewhere Status: Acute (3) Gestational hypertension: Code(s): O13.9 - Gestational [-induced] hypertension without significant proteinuria, unspecified trimester Status: Acute Plan patient will undergo induction of labor. Group B strep prophylaxis we undertaken. PIH labs will be drawn. Spontaneous vaginal delivery is expected. It should be noted that an IUD was in the cervix at 1 point and I have been unable to feel that. Will check for that
[2022-08-18] MEDS: LACTATED RINGERS 1,000 ML 125 ML IV CONT ×2 (06:14→08:03)
[2022-08-18] MEDS: AMPICILLIN 2 GM/NS 100 ML 2 GM/100 ML BAG IVPB (06:15)
[2022-08-18 06:27] LABS: Basophils Percent Auto 0.4 % (0.2-1.2); Eosinophils Absolute Auto 0.1 K/mm3 (0-0.3); Eosinophils Percent Auto 1.2 % (0-4.4); Hematocrit 39.9 % (37.0-47.0); Hemoglobin 12.1 g/dL (12.0-15.0); Immature Granulocyte Absolute 0.07 K/mm3 (0.00-0.031); Immature Granulocyte Percent A 0.6 % (0-0.5); Lymphocytes Absolute Auto 1.96 K/mm3 (0.9-3.2); Lymphocytes Percent Auto 17.3 % (18.3-44.2); Mean Corpuscular HGB Conc 30.3 g/dl (32-36); Mean Corpuscular Hemoglobin 25.1 pg (26-34); Mean Corpuscular Volume 82.8 fl (80-100); Mean Platelet Volume 11.4 fl (7.4-10.4); Monocytes Absolute Auto 0.5 K/mm3 (0.1-0.6); Monocytes Percent Auto 4.4 % (2.6-8.5); Neutrophils Absolute Auto 8.6 K/mm3 (1.3-6.7); Neutrophils Percent Auto 76.1 % (45.5-73.1); Platelet Count Result 162 k/mm3 (150-375); Red Blood Count 4.82 M/mm3 (4.2-5.4); Red Cell Distribution Width 15.5 % (11.5-14.5); White Blood Count 11.3 K/mm3 (4.5-10.0)
[2022-08-18] MEDS: OXYTOCIN 30 UNITS/NS 500 ML 30 UNITS/500 ML BAG IV CONT (06:27)
[2022-08-18 06:37] LABS: Alanine Aminotransferase 17 U/L (6-35); Albumin Level 3.9 g/dL (3.5-5.1); Alkaline Phosphatase 197 U/L (38-126); Anion Gap 4 mmol/L (8-16); Aspartate Amino Transferase 24 U/L (14-36); Bilirubin,Total 0.4 mg/dL (0.2-1.3); Blood Urea Nitrogen 7 mg/dL (7-17); Calcium 8.9 mg/dL (8.4-10.2); Carbon Dioxide 24 mmol/L (22-30); Chloride 104 mmol/L (98-107); Estimated CRCL calculation 174 ml/min; Estimated Glomerular Filt Rate > 60; Glucose 92 mg/dL (65-110); Potassium 3.8 mmol/L (3.4-5.0); Sodium 132 mmol/L (137-145)
--- NOTE | 2022-08-18 08:26 | WPDANESEPP ---
Anes - Eval Pre Procedure Procedure: Labor Epidural Date/Time: 08/18/22 08:26 Surgeon: Sheba Preop Diagnosis: Labor Pain Pre Op Diagnosis: Induction of Labor Patient Data Age: 27 Gender: F Height: 1.7 m Weight: 107 kg Last Vital Signs Temp 36.5 C 08/18/22 06:25 Pulse 123 H 08/18/22 08:25 BP 102/47 L 08/18/22 08:25 Pulse Ox 99 08/18/22 08:21 O2 Del Method Room Air 08/18/22 05:23 Allergies Allergy/AdvReac Type Severity Reaction Status Date / Time No Known Allergies Allergy Mild Verified 08/18/22 05:21 Home Medications Medication Instructions Recorded Confirmed Type albuterol sulfate 90 mcg/actuation 1 puff inhalation Q4-6H PRN 09/22/19 08/18/22 Rx aerosol inhaler (Ventolin HFA) shortness of breath or wheezing #8.5 grams Laboratory Tests 08/18/22 06:18 WBC 11.3 H K/mm3 (4.5-10.0) RBC 4.82 M/mm3 (4.2-5.4) Hgb 12.1 g/dL (12.0-15.0) Hct 39.9 % (37.0-47.0) MCV 82.8 fl (80-100) MCH 25.1 L pg (26-34) MCHC 30.3 L g/dl (32-36) RDW 15.5 H % (11.5-14.5) Plt Count 162 k/mm3 (150-375) MPV 11.4 H fl (7.4-10.4) Immature Gran % (Auto) 0.6 H % (0-0.5) Neut % (Auto) 76.1 H % (45.5-73.1) Lymph % (Auto) 17.3 L % (18.3-44.2) [place] % (Auto) 4.4 % (2.6-8.5) Eos % (Auto) 1.2 % (0-4.4) Baso % (Auto) 0.4 % (0.2-1.2) Lymph # (Auto) 1.96 K/mm3 (0.9-3.2) [place] # (Auto) 0.5 K/mm3 (0.1-0.6) Eos # (Auto) 0.1 K/mm3 (0-0.3) Baso # (Auto) 0.0 K/mm3 (0.0-0.1) Abs Immat Gran (auto) 0.07 H K/mm3 (0.00-0.031) Absolute Neuts (auto) 8.6 H K/mm3 (1.3-6.7) Absolute Nucleated RBC 0.0 K/mm3 (0.0-0.012) Nucleated RBC % 0.0 % (0.0-0.2) Sodium 132 L mmol/L (137-145) Potassium 3.8 mmol/L (3.4-5.0) Chloride 104 mmol/L (98-107) Carbon Dioxide 24 mmol/L (22-30) Anion Gap 4 L mmol/L (8-16) BUN 7 mg/dL (7-17) Creatinine 0.50 L mg/dL (0.7-1.0) Estim Creat Clear Calc 174 ml/min Estimated GFR > 60 (59 - ) Glucose 92 mg/dL (65-110) Calcium 8.9 mg/dL (8.4-10.2) Total Bilirubin 0.4 mg/dL (0.2-1.3) AST 24 U/L (14-36) ALT 17 U/L (6-35) Alkaline Phosphatase 197 H U/L (38-126) Total Protein 8.0 g/dL (6.3-8.2) Albumin 3.9 g/dL (3.5-5.1) RPR Pending Blood Type O Positive Antibody Screen Negative : gestational age (FLORA 09/01/22, ) Patient hx anesthesia problems: none Family hx anesthesia problems: none Results Review: All pre-operative results and documents have been reviewed as part of the pre-operative evaluation. [facility] Past Medical History Medical History Asthma Surgical History Surgical History H/O oral surgery Family History Family History Grandparent Family history of coronary artery disease Mother Thyroid disease Father No problems noted. Social History Social History Smoking status: Never smoker Alcohol intake: current Substance use: former Lack of Transportation: No Lack of Food: Never True Current Housing: I Have Housing Concerned About Future Housing: No Difficulty Paying Gas/Electric Bills: No Difficulty Paying for Meds: No Currently Unemployed: No Education: Associate Degree Difficulty w/ Childcare or Family Care: No Gender identity (if verbalized by the patient): Female Spiritual care concerns: No Exam Day of Procedure 08/18/22 08:26 Patient weight: obese Heart: regular rate and rhythm Lungs: normal air movement Airway: Mallampati scale class II Neurological: alert and oriented
[2022-08-18] MEDS: AMPICILLIN 1 GM/NS 50 ML 1 GM/50 ML BAG IVPB (09:59)
[2022-08-18] MEDS: OXYTOCIN 30 UNITS/NS 500 ML 30 UNITS/500 ML BAG 125 UNITS IV CONT (12:06)
[2022-08-18] MEDS: BENZOCAINE 20% AER SPR (*SP) 56 GM CAN 1 SPRAY TOPICAL (14:56)
[2022-08-18] MEDS: WITCH HAZEL 40 PADS 1 PAD TOPICAL (14:56)
--- NOTE | 2022-08-18 15:25 | PC.NURSE ---
Patient transferred to post room #291 via wheelchair. Support person present. Oriented to unit, room, information board, rooming in, admission packet and security measures. Patient verbalizes understanding.
--- NOTE | 2022-08-18 16:18 | PC.NURSE ---
1035- Introductions were made and mother shared how she would like to feed her baby with attempting to breastfeed along with her past experience. Encouraged mother to place infant [id number] until the first feeding if is stable and to wait on the weight to help stabilize, reduce infant stress, and improve latching by allowing time to explore parent's chest using instincts. Education was shared on how to protect her milk supply with latching and/or using hand expression to remove milk if infant doesn't latch in the first hour, then finger feed colostrum to the infant to preserve breast focus. Resources provided with educational trifold for bonding and feeding infant. Parents voiced understanding of information and to call if there is a request for assistance.
[2022-08-18] MEDS: IBUPROFEN 600 MG TABLET PO (16:27)
[2022-08-18] MEDS: ACETAMINOPHEN 325 MG TABLET 650 MG PO (20:23)
[2022-08-19] VITALS (9 sets, daily range): BP systolic 116–133; BP diastolic 71–77; PULSE 74–99; RESP 15–18; TEMP 36.5–37.1; O2SAT 95–99
[2022-08-19] MEDS: IBUPROFEN 600 MG TABLET PO ×3 (01:08→17:21)
[2022-08-19] MEDS: ACETAMINOPHEN 325 MG TABLET 650 MG PO (04:11)
[2022-08-19 04:23] LABS: Hematocrit 32.5 % (37.0-47.0); Hemoglobin 10.1 g/dL (12.0-15.0)
--- NOTE | 2022-08-19 05:48 | WPDHPUPDATE1 ---
History and Physical Update Update Date/Time: 08/19/22 05:48 History and Physical has been reviewed, including an updated exam of the patient. There are NO changes in the patient's condition. Risks, benefits, and alternatives have been discussed and questions answered. Patient agrees to proceed with procedure. Patient desires tubal ligation permanence, risks benefits were all reviewed alternatives also reviewed
--- NOTE | 2022-08-19 05:48 | PM.DS ---
DS: Admitting Diagnosis Discharge Date 08/20/2022 Admitting Diagnosis term / group B strep/gestational hypertension / sterilization DS: Discharge Diagnosis Discharge Diagnosis (1) Gestational hypertension: Code(s): O13.9 - Gestational [-induced] hypertension without significant proteinuria, unspecified trimester Status: Acute (2) Positive testing for group B Streptococcus: Code(s): B95.1 - Streptococcus, group B, as the cause of diseases classified elsewhere Status: Acute (3) Term : Code(s): Z34.90 - Encounter for supervision of normal , unspecified, unspecified trimester Status: Acute (4) Sterilization: Code(s): Z30.2 - Encounter for sterilization Status: Acute DS: Summary Hospital Course Reason for hospitalization: patient was admitted for induction of labor at term secondary to mildly elevated blood pressures group B strep. Hospital Course: Patient underwent successful umbilical blood labor 08/18/2022. Hospital course unremarkable. day 1 she had a tubal ligation she remained afebrile. She was up, voiding without difficulty, eating regular diet, ambulating, generally without complaints. Time Spent with Patient Time attestation: Total time spent providing and/or coordinating discharge services: Exam Const: General: cooperative, healthy appearing and comfortable Nutritional Appearance: average body habitus Orientation/consciousness: oriented to person, oriented to place and oriented to time HENMT: Head: normal to inspection Resp: Effort & Inspection: normal respiratory effort Cardio: Rate: regular rate Rhythm: regular rhythm Heart sounds: S1 normal heart sound present and S2 normal heart sound present GI: Inspection: normal to inspection and incision ( Wound clean dry and intact) DS: Data Data Completed and Pending Labs on day of discharge: Labs from last 24 hours 08/19/22 08/18/22 04:15 06:18 WBC 11.3 H RBC 4.82 Hgb 10.1 L 12.1 Hct 32.5 L 39.9 MCV 82.8 MCH 25.1 L MCHC 30.3 L RDW 15.5 H Plt Count 162 MPV 11.4 H Immature Gran % (Auto) 0.6 H Neut % (Auto) 76.1 H Lymph % (Auto) 17.3 L [place] % (Auto) 4.4 Eos % (Auto) 1.2 Baso % (Auto) 0.4 Lymph # (Auto) 1.96 [place] # (Auto) 0.5 Eos # (Auto) 0.1 Baso # (Auto) 0.0 Abs Immat Gran (auto) 0.07 H Absolute Neuts (auto) 8.6 H Absolute Nucleated RBC 0.0 Nucleated RBC % 0.0 Sodium 132 L Potassium 3.8 Chloride 104 Carbon Dioxide 24 Anion Gap 4 L BUN 7 Creatinine 0.50 L Estim Creat Clear Calc 174 Estimated GFR > 60 Glucose 92 Calcium 8.9 Total Bilirubin 0.4 AST 24 ALT 17 Alkaline Phosphatase 197 H Total Protein 8.0 Albumin 3.9 RPR Pending Blood Type O Positive Antibody Screen Negative Discharge Plan Discharge Attending physician on discharge: Parth Zhang Discharging Clinician: Parth Zhang Patient Disposition: Home, Self-Care Activity: may shower, no straining and pelvic rest Diet: heart healthy Wound Care Instructions: follow printed instructions Patient Instructions: Antibiotic Form Stand Alone Forms: General Discharge Information Follow-up/Referrals: Parth Zhang MD [Physician] - Discharge Medications: New hydrocodone-acetaminophen 5-325 mg tablet 1 tablet PO Q4H PRN (Reason: pain) Qty: 20 0RF Continued albuterol sulfate [Ventolin HFA] 90 mcg/actuation HFA aerosol inhaler 1 puff INHALATION Q4-6H PRN (Reason: shortness of breath or wheezing) Qty: 8.5 3RF Date of admission: 08/18/22 05:00 Primary Care Provider: UNKNOWN,DOCTOR Admitting Provider: Parth Zhang Attending physician on admission: Parth Zhang Condition: Stable
--- NOTE | 2022-08-19 05:51 | P.PNOB_ITS ---
OB - PN: Subj Subjective Date/time seen: 08/19/22 05:51 Patient comments: no complaints and pain well controlled baby status: doing well OB - PN: Obj Data Labs 08/19/22 04:15 08/18/22 06:18 Labs: Laboratory Results - last 24 hr 08/18/22 08/19/22 06:18 04:15 WBC 11.3 H RBC 4.82 Hgb 12.1 10.1 L Hct 39.9 32.5 L MCV 82.8 MCH 25.1 L MCHC 30.3 L RDW 15.5 H Plt Count 162 MPV 11.4 H Immature Gran % (Auto) 0.6 H Neut % (Auto) 76.1 H Lymph % (Auto) 17.3 L [place] % (Auto) 4.4 Eos % (Auto) 1.2 Baso % (Auto) 0.4 Lymph # (Auto) 1.96 [place] # (Auto) 0.5 Eos # (Auto) 0.1 Baso # (Auto) 0.0 Abs Immat Gran (auto) 0.07 H Absolute Neuts (auto) 8.6 H Absolute Nucleated RBC 0.0 Nucleated RBC % 0.0 Sodium 132 L Potassium 3.8 Chloride 104 Carbon Dioxide 24 Anion Gap 4 L BUN 7 Creatinine 0.50 L Estim Creat Clear Calc 174 Estimated GFR > 60 Glucose 92 Calcium 8.9 Total Bilirubin 0.4 AST 24 ALT 17 Alkaline Phosphatase 197 H Total Protein 8.0 Albumin 3.9 Blood Type O Positive Antibody Screen Negative OB - PN A/P Plan day: 1 Plan: routine care Comments: desires permanent sterilization and circumcision of sudden Time Spent With Patient Time: Total time spent is greater than 50% in coordination of care (as documented) at patient's floor/unit and/or counseling patient: Exam Const: General: cooperative, healthy appearing and comfortable HENMT: Head: normal to inspection Resp: Effort & Inspection: normal respiratory effort Cardio: Rate: regular rate Rhythm: regular rhythm Heart sounds: S1 normal heart sound present and S2 normal heart sound present GI: Inspection: normal to inspection
[2022-08-19 08:10] LABS: Rapid Plasma Reagin Non-Reactive (NonReactive)
[2022-08-19] MEDS: LACTATED RINGERS 1,000 ML 30 ML IV CONT (08:20)
--- NOTE | 2022-08-19 08:27 | WPDANESEPPF ---
Anes - Initial Pre Proc Eval Procedure: Operation Date: 08/19/22 14:00 Proposed Procedures p Post- Tubal Ligation - Parth Roque MD Date/Time: 08/19/22 08:27 Surgeon: Parth Roque MD Pre Op Diagnosis: Induction of Labor/desired sterilization Patient Data Age: 27 Gender: F Height: 1.7 m Weight: 107 kg Last Vital Signs Temp 37.0 C 08/19/22 00:45 Pulse 84 08/19/22 04:15 Resp 16 08/19/22 00:45 BP 131/77 08/19/22 04:15 Pulse Ox 98 08/18/22 15:30 O2 Del Method Room Air 08/18/22 05:23 Allergies Allergy/AdvReac Type Severity Reaction Status Date / Time No Known Allergies Allergy Mild Verified 08/18/22 05:21 Home Medications Medication Instructions Recorded Confirmed Type albuterol sulfate 90 mcg/actuation 1 puff inhalation Q4-6H PRN 09/22/19 08/18/22 Rx aerosol inhaler (Ventolin HFA) shortness of breath or wheezing #8.5 grams hydrocodone 5 mg-acetaminophen 325 1 tablet PO Q4H PRN pain #20 tabs 08/18/22 Rx mg tablet Laboratory Tests 08/18/22 08/19/22 06:18 04:15 Hgb 10.1 L g/dL (12.0-15.0) Hct 32.5 L % (37.0-47.0) RPR Non-reactive (NonReactive) : gestational age (FLORA 09/01/22, ) Patient hx anesthesia problems: none Family hx anesthesia problems: none Results Review: All pre-operative results and documents have been reviewed as part of the pre-operative evaluation. [facility] Past Medical History Medical History Asthma Surgical History Surgical History H/O oral surgery Family History Family History Grandparent Family history of coronary artery disease Mother Thyroid disease Father No problems noted. Social History Social History Smoking status: Never smoker Alcohol intake: current Substance use: former Lack of Transportation: No Lack of Food: Never True Current Housing: I Have Housing Concerned About Future Housing: No Difficulty Paying Gas/Electric Bills: No Difficulty Paying for Meds: No Currently Unemployed: No Education: Associate Degree Difficulty w/ Childcare or Family Care: No Gender identity (if verbalized by the patient): Female Spiritual care concerns: No Anes - Eval Final PreProcedure Day of Procedure 08/19/22 08:27 Patient weight: obese Heart: regular rate and rhythm Lungs: clear to auscultation Airway: Mallampati scale class II Neurological: alert and oriented Last oral intake: >/= 8 hours ASA classification: II Emergent: no Anesthetic plan: proceed Anesthesia type and monitoring: regional epidural (plan on using existing labor epidural and GA as backup) and standard monitoring Results Review: All pre-operative results and documents have been reviewed as part of the pre-operative evaluation. Informed Consent: The patient's anesthetic plan and its attendant risks and benefits were discussed with the patient/family/POA. Questions were solicited and answers provided to the satisfaction of the patient/family/POA.
[2022-08-19] MEDS: LIDOCAINE HCL 1% LOCAL INJ 20 ML VIAL 10 ML INFILTRATE (09:34)
--- NOTE | 2022-08-19 09:47 | P.OP_ITS ---
Procedure Note - Detailed Date of Procedure 08/19/22 Pre-op Diagnosis /desired sterilization Post-op Diagnosis Same Procedure Performed tubal ligation bilaterally via modified [place] method Surgeon Parth Roque MD Anesthesia Local and Epidural Indications this is a multiparous patient day 1 who desires permanent irreversible sterilization. Findings size uterus. Normal-appearing ovaries and tubes bilaterally. Description of Procedure Patient was prepped draped in normal sterile fashion placed in the supine position. Under epidural and 6cc of lidocaine 1% was placed in the infraumbilical area. A 1/2cm incision was made progressive layers the fascia. Fascia incised carried upward outward. Parietal peritoneum L and entered by sharp dissection and opened. The right fallopian tube was grasped in a good knuckle of tube grasped after noting and the midportion transversing it to the distal portion and back to the midportion a 0 chromic free tie was used the peritoneum between pierced the anterior in distal legs were then free tied with 0 chromic. The portion between cut passed off the table and marked as portion of right fallopian tube. This was returned to the abdomen after hemostasis was assured. In like fashion the opposite fallopian tube was grasped a good knuckle of tube formed and free tied with 0 chromic after assuring this was of fallopian tube. The peritoneum pierced in between and the distal and proximal legs were free tied with 0 chromic. The portion between cut passed off as portion of left fallopian tube. Hemostasis was assured and this was returned the abdomen. The fascia then closed with continuous running 0 Vicryl from lateral edge to lateral edge. Subcutaneous layer closed with 4-0 Monocryl and glue. Blood loss estim ated 5cc patient was sent to recovery in satisfactory condition. All sponge, needle, instrument counts were correct. There were no immediate complications Estimated Blood Loss 5 Drains No Packing No Pathology Yes Complications No immediate complications Condition Stable Disposition PACU
[2022-08-19] MEDS: fentaNYL CITRATE INJ (*CRX) 100 MCG/2 ML VIAL 25 MCG IV PUSH ×6 (09:59→10:18)
[2022-08-19] MEDS: HYDROcodone/acetaminophen (*CRX) 5-325 MG TABLET 1 TAB (10:56)
[2022-08-19] MEDS: HYDROcodone/acetaminophen (*CRX) 5-325 MG TABLET 1 TAB PO ×3 (12:02→19:58)
[2022-08-20 00:30] VITALS: BP 118/75
[2022-08-20] MEDS: HYDROcodone/acetaminophen (*CRX) 5-325 MG TABLET 1 TAB PO ×3 (00:39→13:26)
[2022-08-20] MEDS: IBUPROFEN 600 MG TABLET PO ×2 (00:39→08:31)
--- NOTE | 2022-08-20 05:49 | PM.OBPNVD ---
OB - PN: Subj Subjective Date/time seen: 08/20/22 05:49 Patient comments: no complaints and pain well controlled baby status: doing well and nursing well OB - PN: Obj Data Labs 08/19/22 04:15 08/18/22 06:18 Labs: Laboratory Results - last 24 hr 08/18/22 06:18 RPR Non-reactive OB - PN A/P Plan day: 2 Plan: routine care, discharge home and follow up 6 weeks Time Spent With Patient Time: Total time spent is greater than 50% in coordination of care (as documented) at patient's floor/unit and/or counseling patient: Time with patient: less than 15 minutes Exam Const: General: cooperative, healthy appearing and comfortable Nutritional Appearance: average body habitus Orientation/consciousness: oriented to person, oriented to place and oriented to time HENMT: Head: normal to inspection Resp: Effort & Inspection: normal respiratory effort Cardio: Rate: regular rate Rhythm: regular rhythm Heart sounds: S1 normal heart sound present and S2 normal heart sound present GI: Inspection: normal to inspection and incision ( clean dry and intact) Auscultation: normal bowel sounds
[2022-08-20 05:53] LABS: Hematocrit 32.4 % (37.0-47.0)
[2022-08-20] MEDS: DOCUSATE SODIUM 100 MG CAPSULE PO (08:32)
[2022-08-20 09:00] VITALS: BP 132/68; PULSE 95; RESP 16; TEMP 36.9; O2SAT 99
--- NOTE | 2022-08-20 11:49 | PC.NURSE ---
Patient viewed the discharge video Mother & Baby Care, The First Two Weeks . Patient was given the opportunity and encouraged to ask questions. Patient verbalized understanding of information shared and has been given the mother/baby guide for home reference.
--- NOTE | 2022-08-20 15:16 | PC.NURSE ---
Addendum entered by Stacy Brooks RN 08/20/22 15:22: Mother independently latched infant effectively on the left breast with no pain after on the left for 15 minutes. Original Note: [id number] Mother demonstrated independently latch infant optimally without discomfort to her right breast. breastfed effectively with no pain or misshaped nipple to mother. Mother is feeding appropriately for growth of infant and understands stimulating to eat if needed. Infant has had appropriate feedings in the last 24 hours meets the outcomes for weight, output and jaundice at this time. Mother states she is confident to continue effectively her infant at home, when to call for assistance and denies any additional assistance or education at this time. Reinforced understanding of milk production, transition of milk, signs of adequate intake, transition of stool, prevention/relief of engorgement, responsive watching for feeding cues, the different methods of stimulating infant to breastfeed 2-3 hours after the start of the last feeding, community resources, and when to call a provider using the resource of the mom and baby guide. Mother voiced understanding of the education shared. Reported to the primary RN.
--- NOTE | 2022-08-21 09:38 | PM.OBPRVD ---
OB - Delivery Note Procedure Delivery date: 08/18/22 Procedure: Procedures Operation Date: 08/19/22 14:00 Actual Procedure Side Surgeon p Post- Tubal Ligation Bilateral Parth Roque MD Induction method: None Delivery monitor: External FHT Route of delivery: Laceration Description: None Quantitative Blood Loss (ml): 60 Anesthesia type: Epidural Disposition: Floor [place] Baby Weeks of gestation at delivery: 38 presentation: vertex position: Right Occiput Anterior Placenta delivery description: Spontaneous Cord Vessel Description: 3 Vessels
[2022-08-21 13:57] VITALS: BP 121/75; PULSE 93; RESP 18; TEMP 37.2; O2SAT 100
== END 2022-08-20 13:35 | disposition home or self-care (01) | DRG 798 ==
LOC: ANHLDR 13:10 → ANHOB2 15:31
PROVIDERS: Admitting Provider Obstetrics & Gynecology; Visit Provider Obstetrics & Gynecology
PROC: 0UB70ZZ Excision of Bilateral Fallopian Tubes, Open Approach (ICD-10-PCS; CPT 58605; principal; 2022-08-19 14:00)
DX: O13.4 Gestational [pregnancy-induced] hypertension without significant proteinuria, complicating childbirth (principal); Z37.0 Single live birth; Z3A.38 38 weeks gestation of pregnancy; O99.824 Streptococcus B carrier state complicating childbirth; O69.81X0 Labor and delivery complicated by cord around neck, without compression, not applicable or unspecified; Z30.2 Encounter for sterilization
CPT/HCPCS: 36415; 80053; 85014; 85018; 85025; 86592; 86850; 86900; 86901; 88302; A9270; J0290; J2250; J2405; J2590; J2704; J2795; J3010; J7120